=== PATIENT | male | born 1965 | race Caucasian/White ===

== ENCOUNTER 2017-04-16 14:38 | Emergency (ER) | payer MEDICAID, OTHER ==
[~2017-04-16] VITALS: Ht 175.3 cm; Wt 75.0 kg
[~2017-04-16 14:38] MED LIST: CETI10 PO; CLON.5 PO; CLON1TAB PO; DILA8TAB4 PO; DOXE25CA2 PO; FENT75DI T-DERMAL; GABA300 PO; GABA600T PO; HALC0.25 PO; IBUP800 PO; MOME17I; OLAN10 PO; PROZ20CA11 PO
[2017-04-16 14:42] VITALS: BP 140/98; PULSE 132; RESP 16; TEMP 97.6; O2SAT 96
--- NOTE | 2017-04-16 15:10 | PD ---
HPI Chief Complaint: Psychiatric Symptoms Time Seen by Provider: 14:52 Travel History International Travel<30 days: No Contact w/Intl Traveler<30days: No Traveled to known affect area: No History of Present Illness HPI Patient has suicidal ideations. He 52 years old. He tried to hang himself 30 years ago. He denies homicidal ideation. Additional complaints include PTSD and nightmares. He denies drug or alcohol abuse currently. Patient has another complaint which is left upper premolar molar dentalgia. He reports previous compliance of clindamycin conferred some benefit. This morning he took oxycodone for chronic pain. PFSH Past Medical History Asthma: No Autoimmune Disease: No Blood Disorders: No Anxiety: Yes Depression: Yes Heart Rhythm Problems: Yes (TACHYCARDIA) Cancer: No COPD: No Diabetes: No Diminished Hearing: No Endocrine: No Gastrointestinal Disorders: Yes Genitourinary: No Immune Disorder: No Musculoskeletal: Yes (RSD) Neurologic: Yes (TBI) Psychiatric: Yes Reproductive: No Respiratory: No Immunizations Current: Yes Myocardial Infarction: Yes Schizophrenia: Yes Seizures: Yes Sleep Apnea: No Thyroid Disease: No Ulcer: Yes Past Surgical History AICD: No Appendectomy: Yes Arteriovenous Shunt: No Insulin Pump: No Joint Replacement: Yes (RIGHT HIP) Neurologic Surgery: Yes ([facility]) Pacemaker: No Social History Alcohol Use: No (PT DENIES) Tobacco Use: Yes (1PPD) Substance Use: No (PRESCRIPTION PAIN PILLS) Allergies-Medications (Allergen,Severity, Reaction): Coded Allergies: penicillin G (Unverified Allergy, Severe, RASH, 03/12/17) amitriptyline (Verified Adverse Reaction, Severe, Psychosis, 04/16/17) diphenhydramine (Verified Adverse Reaction, Severe, Dizziness, 04/16/17) divalproex sodium (Verified Adverse Reaction, Severe, Seizures, 04/16/17) quetiapine (Verified Adverse Reaction, Severe, Psychosis, 04/16/17) Reported Meds & Prescriptions Reported Meds & Active Scripts Active Clindamycin (Clindamycin HCl) 150 Mg Cap 450 Mg PO Q8HR 10 Days Review of Systems Except as stated in HPI: all other systems reviewed are Neg Physical Exam Narrative GENERAL: Well-nourished well-developed 52-year-old male SKIN: Warm and dry. HEAD: Atraumatic. Normocephalic. EYES: Pupils equal and round. No scleral icterus. No injection or drainage. ENT: No nasal bleeding or discharge. Mucous membranes pink and moist. Poor dentition generally with multiple tender and fractured teeth in the left upper quadrant. NECK: Trachea midline. No JVD. CARDIOVASCULAR: Regular rate and rhythm. RESPIRATORY: No accessory muscle use. Clear to auscultation. Breath sounds equal bilaterally. GASTROINTESTINAL: Abdomen soft, non-tender, nondistended. Hepatic and splenic margins not palpable. MUSCULOSKELETAL: Extremities without clubbing, cyanosis, or edema. No obvious deformities. NEUROLOGICAL: Awake and alert. No obvious cranial nerve deficits. Motor grossly within normal limits. Five out of 5 muscle strength in the arms and legs. Normal speech. PSYCHIATRIC: +SI. No plan. No HI. Data Data Last Documented VS Vital Signs Date Time Temp Pulse Resp B/P (MAP) Pulse Ox O2 Delivery O2 Flow Rate FiO2 04/18/17 06:00 97.8 64 18 91/51 (64) 97 Room Air VS reviewed Orders Orders Clindamycin (Cleocin) (04/16/17 15:15) Nicotine 21 Mg Patch.24 Hr (Habitrol 21 (04/16/17 17:45) Psych Screen (04/16/17 21:24) Diet Regular Basic (04/17/17 Breakfast) Diet Regular Basic (04/17/17 Lunch) Nicotine 21 Mg Patch.24 Hr (Habitrol 21 (04/17/17 11:45) Diet Regular Basic (04/17/17 Dinner) Drug Screen, Random Urine (04/17/17 18:34) Diet Regular Basic (04/18/17 Breakfast) Labs Laboratory Tests Test 04/17/17 18:58 Urine Opiates Screen NEG Urine Barbiturates Screen NEG Urine Amphetamines Screen NEG Urine Benzodiazepines Screen POS Urine Cocaine Screen NEG Urine Cannabinoids Screen NEG MDM Medical Decision Making Medical Screen Exam Complete: Yes Emergency Medical Condition: Yes Medical Record Reviewed: Yes Differential Diagnosis Altered mental status/psychosis due to infection/environmental exposure/ metabolic abnormality, polypharmacy, alcohol abuse/intoxication, illicit or prescribed drug abuse, malingering/secondary gain, non-organic psychiatric disease Narrative Course Pt has chronic left upper dental disease. Clindamycin prescription. Pt states he has suicidal ideation. Psych screen ordered. In absence of psychosis and acute medical complaints, pt is considered medically clear for psych screen. Diagnosis Primary Impression: Suicidal ideation Additional Impressions: Chronic pain Qualified Codes: G89.29 - Other chronic pain DENTAL CARIES, UNSPECIFIED Med/Other Pt SpecificInfo: Prescription(s) given Scripts Clindamycin (Clindamycin) 150 Mg Cap 450 MG PO Q8HR for Infection for 10 Days, CAP 0 Refills Prov: Evaristo Bennett MD 04/16/17 Evaristo Bennett MD Apr 16, 2017 15:10
[2017-04-16] MEDS ORDERED: CLINDAMYCIN 150 MG CAP PO ONE (15:15)
[2017-04-16] MEDS ORDERED: CLIN1CAP5 PO (15:21)
[2017-04-16] MEDS ORDERED: NICOTINE 21 MG/24 HR PATCH T-DERMAL ONE (17:45)
[2017-04-17 07:00] VITALS: BP 138/84; PULSE 77; RESP 16; TEMP 98; O2SAT 99
[2017-04-17] MEDS ORDERED: NICOTINE 21 MG/24 HR PATCH T-DERMAL ONE (11:45)
[2017-04-17 14:03] VITALS: BP 129/83; PULSE 81; RESP 18; O2SAT 100
[2017-04-17 18:21] VITALS: BP 112/74; PULSE 77; RESP 18; O2SAT 100
[2017-04-17 22:31] VITALS: BP 134/83; PULSE 81; RESP 16; TEMP 97.8; O2SAT 95
[2017-04-18 06:00] VITALS: BP 91/51; PULSE 64; RESP 18; TEMP 97.8; O2SAT 97
--- NOTE | 2017-04-18 11:07 | PD ---
History of Present Illness Chief Complaint: Psychiatric Symptoms Time Seen by Provider: 08:45 Travel History International Travel<30 Days: No Contact w/Intl Traveler<30days: No Known affected area: No Legal Status Legal Status: Voluntary History of Present Illness: History of Present Illness HPI [age] year old male with reported history of PTSD, dissociative disorder who presents to ED on a voluntary basis with complaints of suicidal ideation as well as complaints of dentalgia. He denies homicidal ideation. Additional complaints include PTSD and nightmares. He denies drug or alcohol abuse currently. Patient has another complaint which is left upper premolar molar dentalgia. He reports previous compliance of clindamycin conferred some benefit. This morning he took oxycodone for chronic pain. EMR reviewed. Current toxicology is positive for benzos. Patient was monitored in secure environment for over forty hours and he presented no behavioral dysregulation and no suicidality. Nursing report from overnight indicate that he was medication seeking. Patient is seen this morning. He is alert, oriented male. His speech is clear, logical and coherent. He does not appear to be responding to internal stimuli. There is no paranoia and no delusional disbeliefs. He states that he believes that he had " a nervous breakdown when I went to my father's house and a situation evolved there". He states that he began walking and " experienced suicidal thoughts at the time of going into traffic".He then decided to " take a bus and come to the hospital for assistance". During the evaluation he appears to be trying to fabricate symptoms such as " I believe I may have had a hallucination". Initially he states that his goal is to " get back on medication". He does not verbalize suicidal ideation, intent or plan. When a discussion is started regarding referring to [facility] for services such as medication and case management he becomes angry and states " You mean I'm not getting admitted to inpatient for stabilization before I am discharged? I have no place to go". PFSH Past Medical History Asthma: No Autoimmune Disease: No Blood Disorders: No Anxiety: Yes Depression: Yes Heart Rhythm Problems: Yes (TACHYCARDIA) Cancer: No COPD: No Diabetes: No Diminished Hearing: No Endocrine: No Gastrointestinal Disorders: Yes Genitourinary: No Immune Disorder: No Musculoskeletal: Yes (RSD) Neurologic: Yes (TBI) Psychiatric: Yes Reproductive: No Respiratory: No Immunizations Current: Yes Myocardial Infarction: Yes Schizophrenia: Yes Seizures: Yes Sleep Apnea: No Thyroid Disease: No Ulcer: Yes Tetanus Vaccination: > 5 Years Influenza Vaccination: No Past Surgical History AICD: No Appendectomy: Yes Arteriovenous Shunt: No Insulin Pump: No Joint Replacement: Yes (RIGHT HIP) Neurologic Surgery: Yes ([facility]) Pacemaker: No Psychiatric History Psychiatric History Hx Psychiatric Treatment: PATIENT REPORTS DISSOCIATIVE D/O AND PTSD. MEDICAL RECORDS INDICATE SCHIZOAFFECTIVE D/O. CURRENTLY ON NO MEDS. History of Inpatient Treatment: Yes [place] [place] Guns or firearms in home: No Social History Single male. Moved from [place] several weeks ago. Homeless. Unemployed. On disability. 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) Substance Use Type: Alcohol, Nicotine/Cigarettes, Prescription Medications, Huffing Other Substances Used: HAS BEEN ON [facility] Hx of Substance Use Treatment: Yes Family Psychiatric History None reported Allergies-Medications (Allergen,Severity, Reaction): Coded Allergies: penicillin G (Unverified Allergy, Severe, RASH, 03/12/17) amitriptyline (Verified Adverse Reaction, Severe, Psychosis, 04/16/17) diphenhydramine (Verified Adverse Reaction, Severe, Dizziness, 04/16/17) divalproex sodium (Verified Adverse Reaction, Severe, Seizures, 04/16/17) quetiapine (Verified Adverse Reaction, Severe, Psychosis, 04/16/17) Reported Meds & Prescriptions Reported Meds & Active Scripts Active Clindamycin (Clindamycin HCl) 150 Mg Cap 450 Mg PO Q8HR 10 Days Review of Systems Musculoskeletal: COMPLAINS OF: Back pain Exam Alert: Yes [place]: Person (ox4) Mood: Angry Affect: Appropriate Speech: Clear, Logical Eye Contact: Normal Memory Intact: Comment (No gross impairmetn) Hallucinations: Other (negative) Delusions: No Suicidal: Ideation (Negative) Homicidal: Ideation (negative) Insight/Judgement Poor. Not impaired. MDM Medical Decision Making Medical Record Reviewed: Yes Assessment/Plan [age] year old male with reported history of PTSD who presents to ED on a voluntary basis with complaints of suicidal ideation as well as complaints of dentalgia. He denies homicidal ideation. Additional complaints include PTSD and nightmares. He denies drug or alcohol abuse currently. Patient has another complaint which is left upper premolar molar dentalgia Patient monitored in secure environment and presented no behavioral dysregulation and no suicidality He is future oriented and wants to be able to begin his treatment. He appears to be attending to his basic needs. No evidence of any unstable mental illness. His main issue at this time appears to be homelessness. He appears to be malingering or exaggerating his symptoms in order to obtain skilled nursing. Weighing the relevant factors and based on available evidence the patient does not meet criteria for inpatient psychiatric treatment. He is referred to [facility] outpatient. I will request to have shoe caser meet with him to assist with other social issues and provide referral. Cleared from psychiatry for discharge. As patient was being discharged he demanded to be seen by psychiatrist as he did not agree with this mortgage loan underwriter's evaluation. I contacted Dr. Arceo who evaluated patient as well. Orders Orders Nicotine 21 Mg Patch.24 Hr (Habitrol 21 (04/17/17 11:45) Diet Regular Basic (04/17/17 Dinner) Drug Screen, Random Urine (04/17/17 18:34) Diet Regular Basic (04/18/17 Breakfast) Results Vital Signs Date Time Temp Pulse Resp B/P (MAP) Pulse Ox O2 Delivery O2 Flow Rate FiO2 04/18/17 06:00 97.8 64 18 91/51 (64) 97 Room Air 04/17/17 22:31 97.8 81 16 134/83 (100) 95 Room Air 04/17/17 18:21 77 18 112/74 (87) 100 Room Air 04/17/17 14:03 81 18 129/83 (98) 100 Room Air 04/17/17 12:03 Laboratory Tests Test 04/17/17 18:58 Urine Opiates Screen NEG Urine Barbiturates Screen NEG Urine Amphetamines Screen NEG Urine Benzodiazepines Screen POS Urine Cocaine Screen NEG Urine Cannabinoids Screen NEG Diagnosis Primary Impression: Adjustment disorder Additional Impressions: Chronic pain DENTAL CARIES, UNSPECIFIED Ruled Out: Suicidal ideation Psychiatrically Cleared: Yes Med/ Other Pt Specific Info: No Meds Exist/No RX given Prescriptions Clindamycin (Clindamycin) 150 Mg Cap 450 MG PO Q8HR for Infection for 10 Days, CAP 0 Refills Prov: Evaristo Bennett MD 04/16/17 Disposition: 01 DISCHARGE HOME Condition: Stable Problem Qualifiers Primary Impression: Adjustment disorder Qualified Codes: F43.25 - Adjustment disorder with mixed disturbance of emotions and conduct Additional Impressions: Chronic pain Qualified Codes: G89.29 - Other chronic pain Carley Lopez Apr 18, 2017 10:33
--- NOTE | 2017-04-18 11:47 | PD ---
Physical Exam Narrative I was asked by psychiatric department to discharge patient as been cleared from their standpoint. Patient was previously medically cleared by previous provider. Please see their documentation for full H&P. At this point patient' s only complaint is that he did not get to see a psychiatric doctor as he feels his medications needs to be adjusted. Denies any homicidal or suicidal ideations at this time. Dr. Jason was consulted and evaluated the patient. Dr. Jason feels the patient does not meet inpatient criteria and can follow up outpatient as previously arranged. Reports patient was requesting prescription for Ativan. Data Data Last Documented VS Vital Signs Date Time Temp Pulse Resp B/P (MAP) Pulse Ox O2 Delivery O2 Flow Rate FiO2 04/18/17 11:58 98.3 78 20 98/60 (73) 100 04/18/17 06:00 Room Air Orders Orders Clindamycin (Cleocin) (04/16/17 15:15) Nicotine 21 Mg Patch.24 Hr (Habitrol 21 (04/16/17 17:45) Psych Screen (04/16/17 21:24) Diet Regular Basic (04/17/17 Breakfast) Diet Regular Basic (04/17/17 Lunch) Nicotine 21 Mg Patch.24 Hr (Habitrol 21 (04/17/17 11:45) Diet Regular Basic (04/17/17 Dinner) Drug Screen, Random Urine (04/17/17 18:34) Diet Regular Basic (04/18/17 Breakfast) Diet Regular Basic (04/18/17 Lunch) Labs Laboratory Tests Test 04/17/17 18:58 Urine Opiates Screen NEG Urine Barbiturates Screen NEG Urine Amphetamines Screen NEG Urine Benzodiazepines Screen POS Urine Cocaine Screen NEG Urine Cannabinoids Screen NEG MDM Supervised Visit with [facility]: No Narrative Course Patient in no obvious distress upon re-evaluation. Any questions/concerns in reference to patient diagnosis/condition discussed and clarified prior to patient's discharge. Reinforced sheer importance of close follow up with patient 's primary physician or primary care clinic, dentist, and [facility]. Instructed patient to return to ED immediately, if symptoms return/worsen. Pt showed understanding of above instructions. Further instructions and recommendations were detailed in discharge paperwork. Pt ambulated without difficulty out of ED at discharge. Diagnosis Primary Impression: Adjustment disorder Additional Impressions: Chronic pain Qualified Codes: G89.29 - Other chronic pain DENTAL CARIES, UNSPECIFIED Ruled Out: Suicidal ideation Referrals: [facility] Instructions: General Instructions Additional Instruction: Follow-up with your primary care physician and dentist as soon as possible. Follow up with [facility] as scheduled. Rinse mouth with warm salt water gargles. Take all medication as prescribed. Return to the emergency department if symptoms get worse. Scripts Clindamycin (Clindamycin) 150 Mg Cap 450 MG PO Q8HR for Infection for 10 Days, CAP 0 Refills Prov: Evaristo Bennett MD 04/16/17 Disposition: 01 DISCHARGE HOME Condition: Stable Tone Matthew Apr 18, 2017 11:47
[2017-04-18 11:58] VITALS: BP 98/60; TEMP 98.3
== END 2017-04-18 12:06 | disposition home or self-care (01) ==
LOC: NEDAMB 14:38 → NEPJ 04-18 12:06
DX: F43.25 Adjustment disorder with mixed disturbance of emotions and conduct (principal); G89.29 Other chronic pain; K02.9 Dental caries, unspecified; F43.10 Post-traumatic stress disorder, unspecified; F44.9 Dissociative and conversion disorder, unspecified; F41.9 Anxiety disorder, unspecified; F20.9 Schizophrenia, unspecified; I25.2 Old myocardial infarction; R56.9 Unspecified convulsions
CPT/HCPCS: 80307; 99284